=== PATIENT | female | born 1990 | race Caucasian/White ===

== ENCOUNTER 2018-05-01 12:10 | Inpatient (IN) ==
[2018-05-01 12:50] LABS: Basophils % 0.5 %; Eosinophils # 0.2 K/mcL (0.0-0.6); Eosinophils % 3.1 %; Hematocrit 34.7 % (35.3-44.9); Hemoglobin 11.6 g/dL (11.5-15.4); Immature Granulocytes % 0.3 % (0-4); Lymphocytes # 2.1 K/mcL (0.6-4.6); Lymphocytes % 35.8 %; Mean Corpuscular HGB Conc 33.4 g/dL (31.6-35.5); Mean Corpuscular Hemoglobin 28.9 pg (28.0-33.3); Mean Corpuscular Volume 86.3 fL (83.0-100.0); Mean Platelet Volume 10.5 fL (9.4-12.4); Monocytes # 0.5 K/mcL (0.0-1.3); Platelet Count 305 K/mcL (140-400); Red Blood Count 4.02 M/mcL (3.82-4.97); Segmented Neutrophils % 51.3 %
[2018-05-01 13:05] LABS: Alanine Aminotransferase 270 Units/L (7-52); Albumin 3.9 g/dL (3.5-5.7); Albumin/Globulin Ratio 1.3 (1.1-2.2); Alkaline Phosphatase 234 Units/L (34-104); Aspartate Amino Transferase 91 Units/L (13-39); BUN/Creatinine Ratio 16 (6-26); Bilirubin,Direct 3.9 mg/dL (0.0-0.2); Bilirubin,Indirect 4.5 mg/dL (0.0-1.2); Bilirubin,Total 8.4 mg/dL (0.3-1.0); Blood Urea Nitrogen 12 mg/dL (6-20); Calcium 9.6 mg/dL (8.6-10.3); Carbon Dioxide 33 mEq/L (23-29); Chloride 98 mEq/L (98-107); Globulin 3.1 g/dL (2.4-3.5); Glucose 95 mg/dL (70-105); Lipase 21 Units/L (11-82); Osmolality,Calculated 284 (280-300); Potassium 3.2 mEq/L (3.5-5.1); Sodium 137 mEq/L (136-145); eGFR For Non-African Americans > 60 (> 60)
--- NOTE | 2018-05-01 13:36 | Emergency Department Note ---
Disposition Clinical Impression: Elevated bilirubin, Hepatitis Disposition: Admitted As Inpatient Condition: Good Referrals: NONE,PCP [Primary Care Provider] - Forms: ED Satisfaction Letter, Work/School Release Time of Disposition: 15:48 General Adult HPI - General Chief complaint: ED Abdominal Pain Stated complaint: Abd Pain/Unable To Pee/Yellow Eyes Time Seen by Provider: 05/01/18 13:14 Source: patient, family Limitations: no limitations Nursing Notes Reviewed: Yes Vital Signs Reviewed: Yes - History of Present Illness HPI Narrative: This is a 28-year-old female with a past history of methamphetamine and opiate use and a diagnosis about 2 weeks ago HEPATITIS C comes to the emergency department reporting scleral icterus that she noticed 2 or 3 days prior to arrival and dark urine that is been worsening over the last few days. She also reports lower back pain. Pain Scale: 3 - Related Data Previous Rx's Medication Instructions Recorded Levofloxacin [Levaquin] 750 mg PO DAILY #10 tablet 10/28/15 Acetaminophen w/Cod 300-30 mg 1 each PO Q6HR #20 tablet 03/08/16 [Tylenol w/Codeine #3] Cefdinir [Omnicef] 300 mg PO BID #20 capsule 03/08/16 predniSONE [PredniSONE] 40 mg PO DAILY 4 Days tablet 03/08/16 Ondansetron HCl [Zofran] 4 mg PO DAILY #7 tablet 06/20/16 Acetaminophen w/Cod 300-30 mg 1 each PO Q6HR #20 tablet 10/03/16 [Tylenol w/Codeine #3] Cyclobenzaprine HCl 10 mg PO TID #20 tablet 10/03/16 Vit/Iron Fumarate/FA 1 each PO DAILY #30 tablet 10/03/16 [ Tablet] Allergies Allergy/AdvReac Type Severity Reaction Status Date / Time Amoxicillin Allergy Rash Verified 11/20/16 20:39 Penicillins Allergy Rash Verified 11/20/16 20:39 All systems ED: reviewed and negative except as stated. Constitutional: Denies: fever, chills, weakness, weight change Eyes: Reports: other (Scleral icterus) Cardiovascular: Denies: chest pain, palpitations, dyspnea on exertion, edema, syncope Respiratory: Denies: cough, dyspnea, wheezes, hemoptysis, stridor Gastrointestinal: Denies: abdominal pain, nausea, vomiting, diarrhea, constipation, hematemesis, melena, hematochezia Genitourinary: Reports: other (Dark urine) Musculoskeletal: Reports: back pain. Denies: neck pain, arthralgia, myalgia Integumentary: Denies: rash, abrasion, lesions Neurological: Denies: headache, weakness, numbness, paresthesias, confusion, abnormal gait, vertigo Psychiatric: Denies: anxiety, depression, suicidal thoughts, homicidal thoughts , auditory hallucinations, visual hallucinations Endocrine: Denies: fatigue Past Medical History - Past Medical History Medical history: Reports: asthma, hepatitis Psychiatric history: Reports: no psych history MANAGER OF HOSPITAL history: Reports: no MANAGER OF HOSPITAL history - Social History Smoking Status: Current every day smoker Smokeless Tobacco Status: No Alcohol use: Reports: none Drug use: Reports: other Physical Exam - General Limitations: no limitations General appearance: alert, in no apparent distress - Head Head exam: atraumatic, normocephalic, normal inspection - Eye Eye exam: Present: PERRL, EOMI, scleral icterus - ENT ENT exam: normal exam, normal oropharynx, mucous membranes moist - Neck Neck exam: Present: normal inspection, full ROM, trachea midline - Chest Chest inspection: Present: normal inspection, symmetric chest wall rise - Respiratory Respiratory exam: Present: normal lung sounds bilaterally - Cardiovascular Cardiovascular exam: Present: regular rate, normal rhythm, normal heart sounds - Abdominal Exam Abdominal exam: Present: soft, tenderness Abdominal tenderness: Present: RUQ (Minimal right upper quadrant tenderness) - Extremities Exam Extremities exam: Present: normal inspection, full ROM. Absent: tenderness, pedal edema - Neurological Exam Neurological exam: Present: alert, oriented X3 - Psychiatric Psychiatric exam: Present: normal affect, normal mood - Skin Skin exam: Present: warm, dry, intact, normal color Course Vital Signs Temperature 98.0 F 05/01/18 12:11 Pulse Rate 101 05/01/18 12:11 Respiratory Rate 16 05/01/18 12:11 Blood Pressure 131/84 05/01/18 12:11 O2 Sat by Pulse Oximetry 99 05/01/18 12:11 Temperature 98.0 F 05/01/18 13:22 Pulse Rate 100 05/01/18 14:49 Respiratory Rate 16 05/01/18 14:49 Blood Pressure 134/81 05/01/18 14:49 O2 Sat by Pulse Oximetry 94 05/01/18 14:49 Oxygen Delivery Oxygen Delivery Room Air Medical Decision Making - MDM Narrative Medical decision making narrative: This is a 28-year-old female with jaundice. Both direct and indirect bilirubin are dramatically elevated, as is bilirubin and urobilinogen in her urine. I discussed her case with Dr. Carlson, the on-call mixer whipped topping, who recommended admission to the hospital and stated there would be no advantage to her going to [facility]. Hepatitis panel was ordered as well as an INR. At the time of admission, right upper quadrant ultrasound results were pending. - Lab Data Result diagrams: 05/01/18 12:25 05/01/18 12:25 Lab Results 05/01/18 05/01/18 05/01/18 Range/Units 12:25 12:25 13:26 WBC 5.9 (4.3-11.1) K/mcL RBC 4.02 (3.82-4.97) M/mcL Hgb 11.6 (11.5-15.4) g/dL Hct 34.7 L (35.3-44.9) % MCV 86.3 (83.0-100.0) fL MCH 28.9 (28.0-33.3) pg MCHC 33.4 (31.6-35.5) g/dL RDW 21.0 H (11.5-14.5) % Plt Count 305 (140-400) K/mcL MPV 10.5 (9.4-12.4) fL Immature Gran % 0.3 (0-4) % Seg Neutrophils % 51.3 % Lymphocytes % 35.8 % Monocytes % 9.0 % Eosinophils % 3.1 % Basophils % 0.5 % Neutrophils # 3.0 (1.6-8.9) K/mcL Lymphocytes # 2.1 (0.6-4.6) K/mcL Monocytes # 0.5 (0.0-1.3) K/mcL Eosinophils # 0.2 (0.0-0.6) K/mcL Basophils # 0.0 (0.0-0.2) K/mcL Sodium 137 (136-145) mEq/L Potassium 3.2 L (3.5-5.1) mEq/L Chloride 98 (98-107) mEq/L Carbon Dioxide 33 H (23-29) mEq/L BUN 12 (6-20) mg/dL Creatinine 0.77 (0.60-1.20) mg/dL Est GFR ( Amer) > 60 (> 60) Est GFR (Non-Af Amer) > 60 (> 60) BUN/Creatinine Ratio 16 (6-26) Glucose 95 (70-105) mg/dL Calculated Osmolality 284 (280-300) Calcium 9.6 (8.6-10.3) mg/dL Total Bilirubin 8.4 H (0.3-1.0) mg/dL Direct Bilirubin 3.9 H (0.0-0.2) mg/dL Indirect Bilirubin 4.5 H (0.0-1.2) mg/dL AST 91 H (13-39) Units/L ALT 270 H (7-52) Units/L Alkaline Phosphatase 234 H (34-104) Units/L Serum Total Protein 7.0 (6.4-8.9) g/dL Albumin 3.9 (3.5-5.7) g/dL Globulin 3.1 (2.4-3.5) g/dL Albumin/Globulin Ratio 1.3 (1.1-2.2) Lipase 21 (11-82) Units/L Urine Color (Yellow) Urine Clarity (Clear) Urine pH (5.0-8.0) pH Units Ur Specific [place] (1.010-1.025) Urine Protein (Neg-Trace) mg/dL Urine Glucose (UA) (Normal) mg/dL Urine Ketones (Negative) mg/dL Urine Blood (Negative) Urine Nitrite (Negative) Urine Bilirubin (Negative) Urine Urobilinogen (Normal) mg/dL Ur Leukocyte Esterase (Negative) Urine Microscopic RBC (0-3) per hpf Urine Microscopic WBC (0-3) per hpf Ur Squamous Epith Cells (None-Few) per lpf Calcium Oxalate Crystal Urine Bacteria (None-Few) per hpf Ur Culture Indicated? (NO) Urine Test Negative (Negative) 05/01/18 Range/Units 13:26 WBC (4.3-11.1) K/mcL RBC (3.82-4.97) M/mcL Hgb (11.5-15.4) g/dL Hct (35.3-44.9) % MCV (83.0-100.0) fL MCH (28.0-33.3) pg MCHC (31.6-35.5) g/dL RDW (11.5-14.5) % Plt Count (140-400) K/mcL MPV (9.4-12.4) fL Immature Gran % (0-4) % Seg Neutrophils % % Lymphocytes % % Monocytes % % Eosinophils % % Basophils % % Neutrophils # (1.6-8.9) K/mcL Lymphocytes # (0.6-4.6) K/mcL Monocytes # (0.0-1.3) K/mcL Eosinophils # (0.0-0.6) K/mcL Basophils # (0.0-0.2) K/mcL Sodium (136-145) mEq/L Potassium (3.5-5.1) mEq/L Chloride (98-107) mEq/L Carbon Dioxide (23-29) mEq/L BUN (6-20) mg/dL Creatinine (0.60-1.20) mg/dL Est GFR ( Amer) (> 60) Est GFR (Non-Af Amer) (> 60) BUN/Creatinine Ratio (6-26) Glucose (70-105) mg/dL Calculated Osmolality (280-300) Calcium (8.6-10.3) mg/dL Total Bilirubin (0.3-1.0) mg/dL Direct Bilirubin (0.0-0.2) mg/dL Indirect Bilirubin (0.0-1.2) mg/dL AST (13-39) Units/L ALT (7-52) Units/L Alkaline Phosphatase (34-104) Units/L Serum Total Protein (6.4-8.9) g/dL Albumin (3.5-5.7) g/dL Globulin (2.4-3.5) g/dL Albumin/Globulin Ratio (1.1-2.2) Lipase (11-82) Units/L Urine Color Red A (Yellow) Urine Clarity Turbid A (Clear) Urine pH 6.0 (5.0-8.0) pH Units Ur Specific [place] 1.021 (1.010-1.025) Urine Protein 30 H (Neg-Trace) mg/dL Urine Glucose (UA) Normal (Normal) mg/dL Urine Ketones Trace H (Negative) mg/dL Urine Blood Large H (Negative) Urine Nitrite Positive A (Negative) Urine Bilirubin Large H (Negative) Urine Urobilinogen 2.0 H (Normal) mg/dL Ur Leukocyte Esterase Small H (Negative) Urine Microscopic RBC TNTC H (0-3) per hpf Urine Microscopic WBC 3-5 H (0-3) per hpf Ur Squamous Epith Cells Many H (None-Few) per lpf Calcium Oxalate Crystal Present Urine Bacteria None Seen (None-Few) per hpf Ur Culture Indicated? NO. A (NO) Urine Test (Negative)
[2018-05-01 13:38] LABS: Bilirubin,Urine Large (Negative); Blood,Urine Large (Negative); Clarity,Urine Turbid (Clear); Color,Urine Red (Yellow); Glucose,Urine (UA) Normal (Normal); Ketones,Urine Trace mg/dL (Negative); Leukocyte Esterase,Urine Small (Negative); Nitrite,Urine Positive (Negative); Protein,Urine 30 mg/dL (Neg-Trace); Specific Gravity,Urine 1.021 (1.010-1.025)
[2018-05-01 13:41] LABS: Bacteria,Urine None Seen per hpf (None-Few); Squamous Epithelial Cell,Urine Many per lpf (None-Few)
[2018-05-01 13:51] LABS: Calcium Oxalate Crystals,Urine Present; RBC,Urine TNTC per hpf (0-3)
[2018-05-01] MEDS ORDERED: 0.9 % Sodium Chloride 1,000 ML IVC ONE (15:23)
[2018-05-01 15:46] LABS: Prothrombin Time 11.5 Seconds (9.4-12.1)
[2018-05-01] MEDS ORDERED: Potassium Chloride Elixir 20 MEQ/15 ML UDC PO ONE (20:08)
[2018-05-01] MEDS: Ringers Solution, Lactated 1,000 ML IVC SCH (20:26)
--- NOTE | 2018-05-01 20:56 | Internal Med History&Physical ---
Date of Encounter: 05/01/18 Time of Encounter: 20:50 Internal Medicine - H&P: HPI Chief complaint: Yellow skin Admitted From: Home Plans for Post Hospital Care: Home History of present illness: Ms. Nation is a 28 year old woman with a past history of asthma and illicit drug use who was reportedly was diagnosed with hepatitis C about 4 months ago presented to the emergency room complaining of yellowing skin and mucous membranes over the last 3 days in addition to dark urine. She denies associated dysuria. She states that she has been "clean for a while" but does not specify. She reports having taken about "4 tablets of Excedrin" over 2 days but otherwise is not on any other medications. She denies recent alcohol use. She denies associated abdominal pain. In the ER she was seen to have elevated LFTs with both direct and indirect bilirubin increased as well as bilirubin and urobilinogen seen in her urine. An ultrasound was done which did not show hepatobiliary obstruction. Dr. Carlson, the on-call trick rodeo rider was contacted by the ER who recommended admission to the hospital for further evaluation. She was seen lying comfortably in bed. She states she has no complaints at this time other than the yellowing of her eyes, then skin and now dark urine. She denies acholia. No fever, chills, or night sweats. Past Med Surg Social Fam HX - Past Medical History Medical history: asthma, hepatitis Additional medical history: Scolosis, hepatitis C Psychiatric history: no psych history - Social History Smoking Status: Current every day smoker Smokeless Tobacco Status: No Alcohol use: none Drug use: other Internal Medicine - H&P: Meds No Known Home Drugs 05/01/18 [History] 3 Allergy/AdvReac Type Severity Reaction Status Date / Time Amoxicillin Allergy Rash Verified 05/01/18 15:57 Penicillins Allergy Rash Verified 05/01/18 15:57 All Systems PM: A 10-system review of systems was performed and is negative for pertinent findings except as documented above in the HPI. - Constitutional Vitals: Temp Pulse Resp BP Pulse Ox 97.9 F 84 14 118/77 97 05/01/18 19:38 05/01/18 19:38 05/01/18 19:38 05/01/18 19:38 05/01/18 19:38 Exam: Vitals: Reviewed and seem to be within normal limits. General: No acute distress lying comfortably in bed. Skin: Generalized jaundice. HEENT: Moist mucous membranes. Notable scleral icterus. Neck: No lymphadenopathy. No JVD. No carotid bruits. No palpable thyroid. Chest: Normal thoracic expansion. Normal breath sounds. Clear to auscultation. Heart: Normal S1 & S2; rhythmic. No rubs or murmurs. Abdomen: Non-distended, soft and non-tender to palpation. No peritoneal reaction. Liver is normal in size. Spleen is not palpable. Extremities: No clubbing, cyanosis or edema. No calf tenderness. Normal distal pulses. Neurological: Awake, alert and oriented to person, place and time. No focal deficits. Psych: Appropriate affect. Internal Med - H&P Results - Labs CBC & Chem 7: 05/01/18 12:25 05/01/18 12:25 - Assessment and plan (1) Jaundice Current Visit: Yes Status: Acute Assessment and plan: The patient has clinical jaundice with evidence of both direct and indirect bilirubin elevation concomitant with high alkalaline phosphatase increase of unclear etiology. Although a mixed liver pattern, an obstructive entity needs to be ruled out. The abdominal u/s did not show biliary dilatation however. She was previously diagnosed with Hep C however this acute presentation now would be concerning for progression to liver failure if this were to be the cause. -Trend LFTs and INR. -GI consult requested. -Will keep NPO for now in the presybeterian of any tests to be done. -Check acetaminophen level and UDS for potentially noxious substances. (2) Illicit drug use Current Visit: Yes Status: Chronic Assessment and plan: History of substance use disorder. -Check UDS for recent use. -Counseling given. -blade worker if needed. (3) Hypokalemia Current Visit: Yes Status: Acute Assessment and plan: Mild at 3.2. -Will give 1 dose of 40mEq KCL and recheck. (4) Anemia Current Visit: Yes Status: Chronic Assessment and plan: Unclear etiology; possibly from iron deficiency. -Will send iron levels and ferritin to confirm. Qualifiers: Anemia type: unspecified type Qualified Code(s): D64.9 - Anemia, unspecified (5) Hepatitis Current Visit: Yes Status: Chronic Assessment and plan: -Will check hepatitis panel for adequate assessment. -Educated on the availability of therapies. (6) Abnormal urinalysis Current Visit: Yes Status: Acute Assessment and plan: The dark urine is likely from the hepatic injury occurring and the presence of leukocytes or bacteria without any clinical signs and symptoms does not warrant antimicrobial therapy. (7) DVT prophylaxis Current Visit: Yes Status: Acute Assessment and plan: Subcutaneous heparin ordered. - Time Spent With Patient Total time spent is greater than 50% in coordination of care (as documented) at patient's floor/unit and/or counseling patient: 25 - 35 minutes
[2018-05-01 23:36] LABS: Hepatitis B Surface Antigen Nonreactive (Nonreactive)
[2018-05-02 01:22] LABS: Hepatitis B Core IgM Nonreactive (Nonreactive); Hepatitis C Virus Antibody Nonreactive (Nonreactive)
[2018-05-02 02:47] LABS: Hepatitis A Antibody IgM Reactive (Nonreactive)
[2018-05-02] MEDS: *HR* Heparin 5,000 UNIT/ML VIAL SQ SCH ×2 (04:55→06:19)
[2018-05-02] MEDS: Ringers Solution, Lactated 1,000 ML IVC SCH (04:56)
[2018-05-02 06:33] LABS: Prothrombin Time 11.6 Seconds (9.4-12.1)
[2018-05-02] MEDS ORDERED: traMADol 50 MG TABLET PO ONE (06:39)
[2018-05-02 06:49] LABS: % Iron Saturation 27 % (15-50); Iron 86 mcg/dL (50-170); Transferrin 226 mg/dL (203-362)
[2018-05-02 07:00] LABS: Sodium 136 mEq/L (136-145)
[2018-05-02 07:02] LABS: Ferritin 117 ng/mL (10-120)
[2018-05-02 07:09] LABS: Basophils % 0.5 %; Eosinophils # 0.1 K/mcL (0.0-0.6); Eosinophils % 2.2 %; Hematocrit 30.2 % (35.3-44.9); Hemoglobin 10.2 g/dL (11.5-15.4); Immature Granulocytes % 0.3 % (0-4); Lymphocytes # 1.9 K/mcL (0.6-4.6); Lymphocytes % 31.4 %; Mean Corpuscular HGB Conc 33.8 g/dL (31.6-35.5); Mean Platelet Volume 10.9 fL (9.4-12.4); Monocytes # 0.4 K/mcL (0.0-1.3); Monocytes % 7.3 %; Neutrophils # 3.4 K/mcL (1.6-8.9); Platelet Count 286 K/mcL (140-400); Red Blood Count 3.64 M/mcL (3.82-4.97); Red Cell Distribution Width 21.5 % (11.5-14.5); Segmented Neutrophils % 58.3 %
[2018-05-02 07:23] LABS: Alanine Aminotransferase 196 Units/L (7-52); Albumin 3.4 g/dL (3.5-5.7); Albumin/Globulin Ratio 1.1 (1.1-2.2); Alkaline Phosphatase 233 Units/L (34-104); Aspartate Amino Transferase 71 Units/L (13-39); BUN/Creatinine Ratio 11 (6-26); Bilirubin,Direct 2.3 mg/dL (0.0-0.2); Bilirubin,Indirect 3.1 mg/dL (0.0-1.2); Bilirubin,Total 5.4 mg/dL (0.3-1.0); Blood Urea Nitrogen 6 mg/dL (6-20); Calcium 9.1 mg/dL (8.6-10.3); Carbon Dioxide 28 mEq/L (23-29); Chloride 103 mEq/L (98-107); Glucose 111 mg/dL (70-105); Osmolality,Calculated 280 (280-300); Potassium 4.2 mEq/L (3.5-5.1); Total Protein 6.4 g/dL (6.4-8.9); eGFR For Non-African Americans > 60 (> 60)
[2018-05-02 11:19] VITALS: BP 126/80
--- NOTE | 2018-05-02 12:42 | Discharge Summary ---
Orders not resulted at time of discharge: Pending orders 05/01/18 20:06 Urine tox screen [Drug Screen, Urine] [UCHEM] Stat Date of Encounter: 05/02/18 Time of Encounter: 11:00 Hospital course: Ms. Nation is a 28 year old female left AMA before i could evaluate her - Time Spent with Patient Total time spent providing and/or coordinating discharge services: Less than 30 minutes - Discharge Medications Home Medications: No Known Home Drugs 05/01/18 [History] Allergies/Adverse Reactions: 3 Allergy/AdvReac Type Severity Reaction Status Date / Time Amoxicillin Allergy Rash Verified 05/01/18 15:57 Penicillins Allergy Rash Verified 05/01/18 15:57 Date of admission: 05/01/18 16:34 Primary care physician: PCP NONE Consults: 05/01/18 20:09 Consult to Gastroenterology [CONS] Routine Consulting Provider: Gastroenterology Nikole Reason for Consult: new onset icterus with mixed pattern LFTs. Abdominal U/S unremarkable. Reported history of Hep C diagnosed 4 months ago. Call Completed: Yes - Constitutional Vitals: Temp Pulse Resp BP Pulse Ox 98.2 F 66 16 126/80 100 05/02/18 11:17 05/02/18 11:17 05/02/18 11:17 05/02/18 11:17 05/02/18 11:17 - Patient Status Disposition: Left Against Medical Advice Condition: Good - Discharge Instructions Follow Up With: NONE,PCP [Primary Care Provider] -
--- NOTE | 2018-05-02 15:31 | Gastroenterology Consult Note ---
Date of Encounter: 05/02/18 Time of Encounter: 11:40 - Assessment and plan (1) Jaundice Status: Acute Assessment and plan: Labs positive for Hep A, has been given IV fluids and bilirubin is improving. She denies any abdominal pain or nausea/vomiting. Pt advised that hep a is contagious and advised good hand hygeine. (2) Hepatitis Status: Chronic Assessment and plan: labs positive for hep A igm, negative for hep c - Time Spent With Patient Total time spent is greater than 50% in coordination of care (as documented) at patient's floor/unit and/or counseling patient: GI History of Present Illness - Data of Consult Patient: new to practice Consult date: 05/02/18 Requesting Physician: Austin Agustin - Consult Narrative Reason for consult: hep A/jaundice History of present illness: Ms. Nation is a 28 year old woman with a past history of asthma and illicit drug use who was reportedly was diagnosed with hepatitis C about 4 months ago presented to the emergency room complaining of yellowing skin and mucous membranes over the last 3 days in addition to dark urine. She denies associated dysuria. She states that she has been "clean for a while" but does not specify. She reports having taken about "4 tablets of Excedrin" over 2 days but otherwise is not on any other medications. She denies recent alcohol use. She denies associated abdominal pain. An ultrasound was done which did not show hepatobiliary obstruction. She states she has no complaints at this time other than the yellowing of her eyes, then skin and now dark urine. She denies acholia. No fever, chills, or night sweats. She denies abdominal pain, nausea or vomiting. Hep A antibody is present. Total bilirubin 5.4 AST 71 ALT 196 alkaline phosphatase 233. Hgb 10.2. Past Med Surg Social Fam HX - Past Medical History Medical history: asthma, hepatitis Additional medical history: Scolosis, hepatitis C Psychiatric history: no psych history - Social History Smoking Status: Current every day smoker Smokeless Tobacco Status: No Alcohol use: none Drug use: other Review of Systems: GI: as per [place] GENERAL: denies fever or chills EYES: denies yellow discoloration ENT: denies pain with swallowing or difficulty swallowing CARDIO: denies chest pain, palpitations RESP:Shortness of breath with exertion : denies change in color of urine NEURO: denies any weakness HEME: Denies any bruising MS: denies joint pain, joint swelling or back pain. DERM: denies rash or itching PSYCH: history of anxiety or depression - Constitutional Vitals: Temp Pulse Resp BP Pulse Ox 98.2 F 66 16 126/80 100 05/02/18 11:17 05/02/18 11:17 05/02/18 11:17 05/02/18 11:17 05/02/18 11:17 Exam: CONSTITUTIONAL:~alert, no acute distress.~HEAD:~normocephalic.~EYES:~jaundice.~ NECK:~no obvious swelling.~HEART:~regular rate and rhythm, no murmurs.~LUNGS:~ bilateral good air entry.~ABDOMEN:~non distended, soft, non tender, no masses palpable, no organomegaly.~RECTAL EXAM:~Deferred.~EXTREMITIES:~no clubbing, cyanosis or edema.~SKIN:~jaundice, no stigmata of chronic liver disease.~ NEUROLOGIC:~no obvious focal defect.~~~~ Results - Labs CBC & Chem 7: 05/02/18 06:03 05/02/18 06:03 Labs: Last Result Calcium 9.1 mg/dL (8.6-10.3) 05/02/18 06:03 Iron 86 mcg/dL (50-170) 05/02/18 06:03 % Saturation 27 % (15-50) 05/02/18 06:03 Transferrin 226 mg/dL (203-362) 05/02/18 06:03 Ferritin 117 ng/mL (10-120) 05/02/18 06:03 Entire Visit Hgb 10.2 g/dL (11.5-15.4) L 05/02/18 06:03 Hct 30.2 % (35.3-44.9) L 05/02/18 06:03 PT 11.6 Seconds (9.4-12.1) 05/02/18 06:03 Ferritin 117 ng/mL (10-120) 05/02/18 06:03 Total Bilirubin 5.4 mg/dL (0.3-1.0) H 05/02/18 06:03 AST 71 Units/L (13-39) H 05/02/18 06:03 ALT 196 Units/L (7-52) H 05/02/18 06:03 Lipase 21 Units/L (11-82) 05/01/18 12:25 Acetaminophen < 10 mcg/mL (10-20) L 05/01/18 20:17 - ABG ABG results: PT/INR, D-dimer PT 11.6 Seconds (9.4-12.1) 05/02/18 06:03 Consult Discharge Plan - Plan Referrals: NONE,PCP [Primary Care Provider] -
== END 2018-05-02 12:23 | disposition left against medical advice (07) ==
LOC: EMEROO 12:10 → INTOOBSV 16:34 → 3ANU 16:34
PROVIDERS: ADMIT Hospitalist; ATTEND Hospitalist

== ENCOUNTER 2020-04-24 15:58 | Inpatient (IN) ==
[2020-04-24] MEDS ORDERED: *HR* Labetalol 20 MG/4 ML SYRINGE IVP ONE ×2 (17:00→19:06)
[2020-04-24] MEDS ORDERED: Oxytocin 20 units/ LR 1000 mL 20 UNIT/1,000 ML BAG IVC ONE (17:01)
[2020-04-24] MEDS ORDERED: Calcium Gluconate 1,000 MG/10 ML VIAL IVP PRN (17:11)
[2020-04-24] MEDS ORDERED: *HR* Labetalol 20 MG/4 ML SYRINGE IVP PRN (17:11)
[2020-04-24 18:32] LABS: Rubella IgG Antibody POSITIVE (POSITIVE); Varicella Zoster IgG Antibody Negative
[2020-04-24] MEDS: Magnesium Sulf 20 gm/SW 500mL 20 GM/500 ML IV.SOLN IVC SCH (18:34)
[2020-04-24 18:44] LABS: Basophils % 0.4 %; Eosinophils # 0.1 K/mcL (0.0-0.6); Eosinophils % 0.6 %; Hematocrit 32.4 % (35.3-44.9); Hemoglobin 9.1 g/dL (11.5-15.4); Immature Granulocytes % 0.7 % (0-4); Lymphocytes # 1.8 K/mcL (0.6-4.6); Lymphocytes % 17.5 %; Mean Corpuscular HGB Conc 28.1 g/dL (31.6-35.5); Mean Corpuscular Volume 78.5 fL (83.0-100.0); Mean Platelet Volume 10.7 fL (9.4-12.4); Monocytes # 0.5 K/mcL (0.0-1.3); Monocytes % 5.1 %; Neutrophils # 7.8 K/mcL (1.6-8.9); Platelet Count 282 K/mcL (140-400); Red Blood Count 4.13 M/mcL (3.82-4.97); Red Cell Distribution Width 16.6 % (11.5-14.5); Segmented Neutrophils % 75.7 %; White Blood Count 10.3 K/mcL (4.3-11.1)
[2020-04-24 18:54] LABS: Alanine Aminotransferase 9 Units/L (7-52); Aspartate Amino Transferase 17 Units/L (13-39); BUN/Creatinine Ratio 9 (6-26); Blood Urea Nitrogen 6 mg/dL (6-20); Lactate Dehydrogenase 196 Units/L (140-271); Uric Acid 6.9 mg/dL (2.3-7.6); eGFR For African Americans > 60 (> 60); eGFR For Non-African Americans > 60 (> 60)
[2020-04-24 19:02] LABS: Platelet Estimate Normal (Normal)
[2020-04-24 19:03] LABS: Anisocytosis 1+ (Not Present); Microcytosis Present (Not Present)
[2020-04-24 19:03] LABS: Amphetamine Screen,Urine Positive ng/mL (Cutoff=1000); Barbiturate Screen,Urine Negative ng/mL (Cutoff=200); Benzodiazepines Screen,Urine Negative ng/mL (Cutoff=200); Cannabinoid Screen,Urine Negative ng/mL (Cutoff = 50); Cocaine Screen,Urine Negative ng/mL (Cutoff= 300); Opiate Screen,Urine Positive ng/mL (Cutoff=300); Phencyclidine Screen,Urine Negative ng/mL (Cutoff=25)
[2020-04-24 20:08] LABS: Hepatitis B Surface Antigen Nonreactive (Nonreactive)
[2020-04-24] MEDS ORDERED: Acetaminophen 325 MG TABLET PO PRN (20:27)
[2020-04-24] MEDS ORDERED: *HR* Oxytocin 10 UNIT/ML VIAL IM ONE (20:27)
[2020-04-24] MEDS ORDERED: Oxytocin 20 units/ LR 1000 mL 20 UNIT/1,000 ML BAG IVC SCH (20:30)
[2020-04-24 20:37] LABS: HIV-1&2 Antibody & p24 Ag Nonreactive (Nonreactive)
[2020-04-25] MEDS: Ringers Solution, Lactated 1,000 ML IVC SCH ×2 (03:15→15:25)
[2020-04-25] MEDS: Magnesium Sulf 20 gm/SW 500mL 20 GM/500 ML IV.SOLN IVC SCH ×2 (04:18→15:23)
[2020-04-25] MEDS: Prenatal Vit/FA 1 EACH TABLET PO SCH (07:58)
[2020-04-25 09:21] LABS: Basophils # 0.1 K/mcL (0.0-0.2); Basophils % 0.5 %; Eosinophils # 0.1 K/mcL (0.0-0.6); Eosinophils % 0.9 %; Hematocrit 29.2 % (35.3-44.9); Hemoglobin 8.5 g/dL (11.5-15.4); Immature Granulocytes % 0.8 % (0-4); Lymphocytes # 2.6 K/mcL (0.6-4.6); Lymphocytes % 23.5 %; Mean Corpuscular HGB Conc 29.1 g/dL (31.6-35.5); Mean Corpuscular Volume 78.9 fL (83.0-100.0); Mean Platelet Volume 10.6 fL (9.4-12.4); Monocytes # 0.4 K/mcL (0.0-1.3); Monocytes % 3.9 %; Neutrophils # 7.7 K/mcL (1.6-8.9); Platelet Count 336 K/mcL (140-400); Red Cell Distribution Width 16.6 % (11.5-14.5); Segmented Neutrophils % 70.4 %
[2020-04-25] MEDS: Ibuprofen 600 MG TABLET PO PRN ×2 (13:04→20:39)
[2020-04-26] MEDS: Prenatal Vit/FA 1 EACH TABLET PO SCH (07:47)
[2020-04-26] MEDS: Ibuprofen 600 MG TABLET PO PRN (07:48)
[2020-04-26] MEDS: *HR* Buprenorphine HCl 8 MG TAB.SUBL SL SCH (14:46)
[2020-04-27 07:54] VITALS: BP 131/79
[2020-04-27] MEDS: *HR* Buprenorphine HCl 8 MG TAB.SUBL SL SCH (09:51)
[2020-04-27] MEDS: Prenatal Vit/FA 1 EACH TABLET PO SCH (09:51)
[2020-04-29 11:21] LABS: HCV Quant Interpretation DETECTED (Not Detected); HCV Quant Log 5.92 log IU/mL
== END 2020-04-27 12:23 | disposition home or self-care (01) | DRG 561 ==
LOC: EDACCT# → 1NENULAB 15:58 → 1NENUOBS 20:12
PROVIDERS: ADMIT Obstetrics & Gynecology; ATTEND Obstetrics & Gynecology